=== PATIENT | male | born 1950 | race Caucasian/White ===

== ENCOUNTER 2021-11-12 03:05 | Observation (INO) | payer MEDICARE, SELFPAY ==
[2021-11-12] VITALS (16 sets, daily range): BP systolic 109–164; BP diastolic 60–81; PULSE 18–102; RESP 14–22; TEMP 36.5–36.9; O2SAT 95–100; BMI 27.8
--- NOTE | ~2021-11-12 | XR_ITS ---
EXAMINATION: XR chest 2V DATE: 11/12/2021 03:40 INDICATION: Chest pain. TECHNIQUE: Frontal and lateral views of the chest were obtained. COMPARISON: None. FINDINGS: There are airspace opacities in right lower lung zone and left mid and lower lung zones. No pleural effusion or pneumothorax. Cardiomegaly is noted. IMPRESSION: 1. Airspace opacities in right lower lung zone and left mid and lower lung zones, consistent with ate lectasis versus pneumonia. 2. Cardiomegaly. Reviewed, dictated and finalized at location A. RING MACHINE OPERATOR IMPRESSION: 1. Airspace opacities in right lower lung zone and left mid and lower lung zone s, consistent with atelectasis versus pneumonia. 2. Cardiomegaly.
--- NOTE | ~2021-11-12 | CT_ITS ---
EXAMINATION: CT brain wo con DATE: 11/12/2021 03:40 INDICATION: Dizziness. Head injury. TECHNIQUE: Computed tomography (CT) of the head was performed without intravenous contrast. The mA wa s adjusted according to patient size. Iterative reconstruction technique was employed. The dose-lengt h product was 681.00 mGy-cm. COMPARISON: None FINDINGS: There are scattered areas of low attenuation in the cerebral white matter, which is within normal limits for the patient's age. There is an old lacunar infarct in the left basal ganglia. There is no intracranial hemorrhage, acute infarction, or abnormal intracranial mass lesion. The ventricle s are normal in size. There is mild mucosal thickening in left maxillary sinus. The mastoid air cells are normal. There are likely changes of ocular lens replacement surgeries. IMPRESSION: 1. Old lacunar infarct in the left basal ganglia. Reviewed, dictated and finalized at location A. ULTING SALES MANAGER
--- NOTE | 2021-11-12 03:07 | ECG_ITS ---
Measurements Intervals [place] Rate: 81 P: 65 [place]: 196 QRS: -77 QRSD: 169 T: 44 QT: 422 QTc: 492 Interpretive Statements SINUS RHYTHM POSSIBLE LEFT ATRIAL ENLARGEMENT [-0.1mV P WAVE IN V1/V2] RIGHT BUNDLE BRANCH BLOCK [120+ ms QRS DURATION, UPRIGHT V1, 40+ ms S IN I/aVL/V4/V5/V6] LEFT ANTERIOR FASCICULAR BLOCK [QRS AXIS <= -45, QR IN I, RS IN II] LEFT VENTRICULAR HYPERTROPHY AND ST-T CHANGE [VOLTAGE CRITERIA PLUS ST/T ABNORMALITY] POSSIBLE ANTEROSEPTAL MYOCARDIAL INFARCTION , OF INDETERMINATE AGE [30 ms Q WAVE IN V1- V4] ABNORMAL ECG NO PREVIOUS ECG AVAILABLE FOR COMPARISON Electronically Signed On 11-12-2021 14:04:45 SUPERVISOR METAL FABRICATING by Jose De Jesus Lui M.D.
--- NOTE | 2021-11-12 03:09 | ED.CHESTPAIN ---
HPI - Chest Pain General Chief Complaint: Chest Pain Stated Complaint: left sided chest pain Time Seen by Provider: 11/12/21 03:08 Source: patient Mode of arrival: ambulatory Limitations: no limitations History of Present Illness HPI narrative: Patient is a 71-year-old male complaining of chest pain, left chest, 8 out of 10, tightness, nonradiating started prior to arrival. Patient also complaining of feeling dizzy accompanied by nausea, fell and hit his head on the floor. Patient denies any loss of consciousness. Patient was able to get up and ambulate after the fall. Patient denies any shortness of breath, abdominal pain, vomiting, diaphoresis, fever or chills. Related Data Allergies Allergy/AdvReac Type Severity Reaction Status Date / Time No Known Allergies Allergy Verified 11/12/21 03:51 Review of Systems Review of Systems: All systems reviewed & are unremarkable except as noted in HPI and below Constitutional: Constitutional: Denies body ache(s), Denies chills, Denies excessive sweating, Denies fatigue, Denies fever(s), Denies headache(s), Denies lethargy, Denies malaise, Denies weakness and Denies weight loss Eyes: Eyes: Denies blurry vision, Denies change in vision and Denies loss of vision ENT: Denies dizziness, Denies ear discharge, Denies headache(s), Denies lip swelling, Denies epistaxis, Denies nasal congestion, Denies neck pain, Denies throat swelling and Denies tongue swelling Cardiovascular: Cardiovascular: Denies chest pain, Denies chest pain at rest, Denies chest pain with activity, Denies diaphoresis, Denies rapid heart rate, Denies edema, Denies irregular heart rhythm, Denies lightheadedness, Denies palpitations, Denies dyspnea and Denies dyspnea on exertion Respiratory: Respiratory: Denies chest congestion, Denies cough, Denies hemoptysis, Denies dyspnea and Denies dyspnea on exertion Gastrointestinal: Gastrointestinal: Denies abdominal pain, Denies melena, Denies hematochezia, Denies diarrhea, Denies vomiting and Denies hematemesis Musculoskeletal: Musculoskeletal: Denies abnormal gait, Denies deformity, Denies joint swelling, Denies limited range of motion, Denies neck pain and Denies numbness Neurologic: Denies Abnormal speech present, Denies abnormal gait, Denies confusion, Denies headache(s), Denies focal weakness, Denies loss of vision, Denies numbness, Denies Other visual disturbances, Denies Sensory deficit (Neuro) and Denies weakness Psychiatric: Psychiatric: Denies confusion, Denies depression, Denies auditory hallucinations, Denies homicidal ideation and Denies suicidal ideation Endocrine: Endocrine: Denies cold intolerance, Denies excessive sweating, Denies fatigue, Denies heat intolerance and Denies palpitations Hematologic/Lymphatic: Hematologic/Lymphatic: Denies easy bleeding and Denies easy bruising Allergic/Immunologic: Allergic/Immunologic: Denies lip swelling, Denies throat swelling and Denies tongue swelling PMFSH Comments Past medical history: Hypertension, hyperlipidemia, coronary artery disease with stent placement Family history: Positive for coronary artery disease Social history: Non-smoker no EtOH or drug use Exam Const: General: cooperative, healthy appearing, comfortable, no acute distress, well developed, alert and awake; No confusion Orientation/consciousness: oriented to person, oriented to place, oriented to time, patient oriented x3 and No confusion Limitations: no limitations HENMT: Head: normal to inspection, normocephalic and atraumatic Ears: hearing grossly normal bilaterally, TM normal on the right and TM normal on the left General nose exam: Normal external nose present, Normal nares present and No nasal discharge present Face and sinus: normal facial exam Mouth: Yes Normal oral and palatal mucosa present, Yes lip normal, Yes tongue normal and Yes oropharynx normal Throat: posterior oropharynx normal, tonsils normal and uvula midline Eyes: General: appearance norm
[2021-11-12 03:28] LABS: Basophils Absolute Auto 0.1 K/mm3 (0.0-0.1); Basophils Percent Auto 0.6 % (0.2-1.2); Eosinophils Percent Auto 0.4 % (0-4.4); Hematocrit 36.1 % (42.0-52.0); Hemoglobin 11.8 g/dL (14.0-18.0); Immature Granulocyte Absolute 0.03 K/mm3 (0.00-0.031); Immature Granulocyte Percent A 0.3 % (0-0.5); Lymphocytes Absolute Auto 1.04 K/mm3 (0.9-3.2); Lymphocytes Percent Auto 10.4 % (18.3-44.2); Mean Corpuscular HGB Conc 32.7 g/dl (32-36); Mean Corpuscular Hemoglobin 34.7 pg (26-34); Mean Corpuscular Volume 106.2 fl (80-100); Mean Platelet Volume 9.3 fl (7.4-10.4); Monocytes Absolute Auto 0.6 K/mm3 (0.1-0.6); Monocytes Percent Auto 5.9 % (2.6-8.5); Neutrophils Absolute Auto 8.3 K/mm3 (1.3-6.7); Neutrophils Percent Auto 82.4 % (45.5-73.1); Platelet Count Result 282 k/mm3 (150-375)
--- NOTE | 2021-11-12 03:30 | PC.NURSE ---
Addendum entered by Alexys León RN 11/12/21 06:11: this RN let significant other know that we were doing everything we could for the pt and to not be disrespectful to staff. Significant other later asking for JASMIN ramirez name and for something to leave a review. Original Note: significant other of pt at bedside, JASMIN ramirez started IV attempting aspirate blood when significant other states thats not a good blood draw, I'm a BSN and I know that isnt good. significant other also stating He's very sick and he needs to stay here.
[2021-11-12 03:39] LABS: Alanine Aminotransferase 27 U/L (4-50); Albumin Level 4.5 g/dL (3.5-5.1); Alkaline Phosphatase 55 U/L (38-126); Anion Gap 11 mmol/L (8-16); Aspartate Amino Transferase 48 U/L (17-59); Bilirubin,Total 0.8 mg/dL (0.2-1.3); Blood Urea Nitrogen 41 mg/dL (9-20); Calcium 9.4 mg/dL (8.4-10.2); Carbon Dioxide 20 mmol/L (22-30); Chloride 107 mmol/L (98-107); Estimated CRCL calculation 39 ml/min; Estimated Glomerular Filt Rate 40; Glucose 142 mg/dL (65-110); Lipase 273 U/L (23-300); Potassium 5.1 mmol/L (3.4-5.0); Sodium 138 mmol/L (137-145)
[2021-11-12 03:43] LABS: Prothrombin Time 13.1 Seconds (11.1-14.7)
[2021-11-12 03:50] LABS: Troponin I < 0.012 ng/mL (0.000-0.034)
[2021-11-12] MEDS: ASPIRIN 81 MG CHEWABLE TABLET 324 MG PO (03:52)
[2021-11-12] MEDS: NITROGLYCERIN SL 0.4 MG TABLET SUBLINGUAL (03:53)
[2021-11-12] MEDS: PROMETHAZINE HCL 25 MG/ML AMPUL 12.5 MG IV PUSH (03:54)
[2021-11-12] MEDS: LACTATED RINGERS 1,000 ML 999 ML IV CONT (03:55)
--- NOTE | 2021-11-12 04:18 | PC.NURSE ---
1st and 2nd dose of nitro given, pt began throwing up shortly after second dose. 3rd dose not given per EDP riley and EDP riley made aware. EDP riley verbal order read back for 4 mg zofran IV at this time.
[2021-11-12] MEDS: FUROSEMIDE INJ 40 MG/4 ML VIAL 10 MG IV PUSH (04:25)
[2021-11-12] MEDS: ONDANSETRON INJ 4 MG/2 ML VIAL IV PUSH (04:25)
[2021-11-12] MEDS: LACTATED RINGERS 1,000 ML 100 ML IV CONT ×2 (05:36→20:00)
[2021-11-12 06:18] LABS: SARS-CoV-2 RNA PCR Negative
[2021-11-12 06:50] LABS: Troponin I < 0.012 ng/mL (0.000-0.034)
--- NOTE | 2021-11-12 07:06 | ADMGEN ---
This patient, Julián Saucead, was admitted to IMU Room 214-01 TODy 11/12/2021@ 0655. Patient/family oriented to hospital policies and general routines including ID bracelet, bed and alarms, visiting hours, pain management, procedures, bathroom and other care routines, personal items, smoking policy, room service/diet, and visiting hours. Information on how to activate the Rapid Response Team has been discussed. Patient/Family are encouraged to report perceived risks to care and to ask questions if they do not understand what they are told or what they should do.
[2021-11-12 09:38] LABS: Troponin I < 0.012 ng/mL (0.000-0.034)
[2021-11-12 10:44] LABS: Hematocrit 33.8 % (42.0-52.0); Hemoglobin 11.2 g/dL (14.0-18.0)
--- NOTE | 2021-11-12 10:50 | ECG_ITS ---
Measurements Intervals [place] Rate: 95 P: 43 [place]: 201 QRS: -78 QRSD: 177 T: 51 QT: 397 QTc: 500 Interpretive Statements SINUS RHYTHM RIGHT BUNDLE BRANCH BLOCK [120+ ms QRS DURATION, UPRIGHT V1, 40+ ms S IN I/aVL/V4/V5/V6] LEFT ANTERIOR FASCICULAR BLOCK [QRS AXIS <= -45, QR IN I, RS IN II] COMPARED TO ECG 11/12/2021 03:13:03 NO SIGNIFICANT CHANGES Electronically Signed On 11-12-2021 15:46:20 SOIL BIOLOGY TEACHER by Rajat De Leon M.D.
[2021-11-12 11:08] LABS: Anion Gap 6 mmol/L (8-16); Blood Urea Nitrogen 42 mg/dL (9-20); Calcium 9.3 mg/dL (8.4-10.2); Carbon Dioxide 25 mmol/L (22-30); Chloride 107 mmol/L (98-107); Estimated CRCL calculation 44 ml/min; Estimated Glomerular Filt Rate 46; Glucose 173 mg/dL (65-110); Potassium 6.1 mmol/L (3.4-5.0); Sodium 138 mmol/L (137-145)
[2021-11-12 11:38] LABS: D Dimer 0.56 ug/mL (<0.48)
--- NOTE | 2021-11-12 11:44 | PM.CNCAR ---
Assessment and Plan Assessment and plan (1) Chest pain: Qualifiers: Chest pain type: unspecified Qualified Code(s): R07.9 - Chest pain, unspecified Code(s): R07.9 - Chest pain, unspecified Status: Acute Assessment and Plan: Chest pain atypical, constant highly suggestive of GI etiology with burning in nature, worse with coughing, coffee-ground emesis with nausea and vomiting, worse with deep breathing lying flat with reported history of alcohol intake, combination of consistent NSAIDs plus aspirin and clopidogrel. Symptoms are not secondary to acute coronary syndrome and/or plaque rupture. Serial troponins negative for myocardial infarction. No prior EKG available for comparison. No acute ST elevations noted. Symptoms quite concerning for ulcer and or severe inflammation. Recommend GI consult, EGD as appropriate. Clinically, patient very likely to have pulmonary embolism. No edema, shortness of breath, hypoxia or significant tachycardia. D-dimer ordered but explained anticipate will be elevated. I would not advise systemic anticoagulation given concern for ulcer disease with coffee-ground emesis until further clarification. Very lengthy discussion held the patient and significant other at bedside. Given the persistence of his symptoms, negative serial troponins lack of acute ST elevations and clinical description and history highly suggestive of GI etiology. Will continue to monitor patient closely in this regard. Reassured them at this time with regards to acute coronary event is not occurring with a further GI workup recommended as appropriate. They verbalized understanding and agreed with plan of care. Appreciated my explanations and was grateful for the time spent with them. Discussed with primary service, GI consultation placed. Further recommendations to follow patient patient's clinical course and response to therapy. (2) CAD (coronary artery disease): Qualifiers: Coronary Disease-Associated Artery/Lesion type: [place] artery [place] vs. transplanted heart: [place] heart Associated angina: without angina Qualified Code(s): I25.10 - Atherosclerotic heart disease of [place] coronary artery without angina pectoris Code(s): I25.10 - Atherosclerotic heart disease of [place] coronary artery without angina pectoris Status: Acute Assessment and Plan: Dual antiplatelet therapy to be continued as appropriate due to overlapping drug-eluting stent February 2021 at [facility] 3.0 x 38 mm in 2.5 x 24 mm. May hold for EGD. At the very least if able clopidogrel without aspirin although GI recommendations are pending. Continue statin beta-rafael therapy as tolerated. (3) Coffee ground emesis: Code(s): K92.0 - Hematemesis Status: Acute Assessment and Plan: As above. Concerning for NSAID induced ulcer disease and or esophagitis. Defer to GI and primary service. IV Protonix 40 mg IV q.12 ordered. (4) GERD (gastroesophageal reflux disease): Qualifiers: Esophagitis presence: esophagitis presence not specified Qualified Code(s): K21.9 - Gastro-esophageal reflux disease without esophagitis Code(s): K21.9 - Gastro-esophageal reflux disease without esophagitis Status: Acute Assessment and Plan: As above. (5) Near syncope: Code(s): R55 - Syncope and collapse Status: Acute Assessment and Plan: Likely combination of nausea, vomiting, alcohol but without rehana syncope. Continue telemetry. (6) Acute hyperkalemia: Code(s): E87.5 - Hyperkalemia Status: Acute Assessment and Plan: Repeat stat potassium. Defer to primary service. (7) Alcohol use: Code(s): Z72.89 - Other problems related to lifestyle Status: Acute Assessment and Plan: Immediate and absolute cessation from alcohol. (8) Anemia: Code(s): D64.9 - Anemia, unspecified Status: Acute Assessment
--- NOTE | 2021-11-12 12:04 | ECHO_ITS ---
Patient Info Name: Julián Sauceda Age: 71 years : 1950 Gender: Male Ht: 71 in Wt: 199 lbs BSA: 2.14 m2 HR: 98 bpm BP: 146 / 64 mmHg Heart Rhythm: Sinus Rhythm Exam Date: 11/12/2021 1:12 PM Exam Location: [facility] Patient Status: Inpatient Admit Date: 11/12/2021 Staff Ordering Physician: Jose De Jesus Lui MD Advanced Practice Registered Nurse: Edmond Mansfield RDCS, RT Attending Provider: Neisha London PA-C Referring Physician: Hu HERRREA; Exam Type: CA echo dop color flow w con Study Info Indications R07.9 - Chest pain, unspecified Complete two-dimensional, color flow and Doppler transthoracic echocardiogram is performed with contrast to opacify the left ventricle and to improve the deliniation of the left ventricle endocardial borders. Strain analysis performed. Summary 1. Technically difficult study with limited views. Definity echo contrast enhancement administered. 2. Left ventricular systolic function is normal, estimated at 55-60%. 3. There is moderately increased left ventricular wall thickness. 4. Left ventricular septal wall motion is abnormal with septal motion related to bundle branch block. 5. The left ventricular diastolic function is grade I diastolic dysfunction. 6. Right atrial chamber dimension is mildly enlarged. 7. There is no aortic valve stenosis. 8. There is trace mitral valve regurgitation. 9. Unable to estimate PA systolic pressure due to poor spectral resolution of tricuspid regurgitant jet velocity. 10. The aortic root size at the sinus of Valsalva is mildly dilated at 4.1cm. Consider CT chest if clinically indicated. Left Ventricle Left ventricular chamber dimension is normal. Left ventricular systolic function is normal, estimated at 55-60%. There is moderately increased left ventricular wall thickness. Left ventricular septal wall motion is abnormal with septal motion related to bundle branch block. The left ventricular diastolic function is grade I diastolic dysfunction. Right Ventricle Right ventricular chamber dimension is normal. Right ventricular systolic function is normal. Left Atria Left atrial chamber dimension is normal. Right Atria Right atrial chamber dimension is mildly enlarged. Aortic Valve The aortic valve is trileaflet. There is no aortic valve stenosis. There is no aortic valve regurgitation. Pulmonic Valve The pulmonic valve is not well visualized. There is trace pulmonic regurgitation. Mitral Valve The mitral valve has normal leaflets. There is trace mitral valve regurgitation. The mitral valve annulus is mildly calcified. Tricuspid Valve The tricuspid valve leaflets are normal. There is trace tricuspid valve regurgitation. Unable to estimate PA systolic pressure due to poor spectral resolution of tricuspid regurgitant jet velocity. Pericardium/Pleural The pericardium appears epicardial fat pad. There is no pericardial effusion. Aorta The aortic root size at the sinus of Valsalva is mildly dilated at 4.1cm. Consider CT chest if clinically indicated. There is mild aortic atherosclerosis. Left Ventricular Outflow Tract Name Value Normal LVOT 2D LVOT Diameter 2.44 cm LVOT Doppler
[2021-11-12] MEDS: FOLIC ACID 1 MG TABLET PO (12:32)
[2021-11-12] MEDS: PANTOPRAZOLE SODIUM IV 40 MG VIAL IV PUSH ×2 (12:32→20:00)
[2021-11-12] MEDS: THIAMINE HCL 100 MG TABLET PO (12:32)
[2021-11-12 12:34] LABS: Potassium 5.2 mmol/L (3.4-5.0)
--- NOTE | 2021-11-12 12:54 | PM.IMHP ---
H&P: HPI History of Present Illness Date/Time: 11/12/21 12:54 <Neisha London PA-C - Last Filed: 11/12/21 13:43> Chief Complaint: EPigastric pain <Neisha London PA-C - Last Filed: 11/12/21 13:43> Narrative: Date of service: 11/12/2021 Julián Sauceda is a 71-year-old male with a history of CAD, hypertension, hyperlipidemia, COVID-19 in November 2020 with long COVID symptoms, and daily alcohol use who presented to the emergency department on 11/12/2021 with complaints of severe epigastric pain. The patient states that he was watching TV when all of a sudden he felt very nauseous and had an episode of black emesis. He then developed diffuse, sharp, burning epigastric pain that he rated as 9/10. This pain prompted him to go to the emergency department where he reports he had another episode of black emesis. He states that he hit his head on the sink when he was throwing up and cut his left upper brow. He is not sure what transpired with the fall and he states ?I am not sure if I passed out.? He admits to drinking 4 whiskey drinks in a 6 hour period prior to this episode but reports that he did not feel intoxicated. He denies lower abdominal pain. He denies midsternal pain. Denies arm pain, jaw pain. He does admit that he has had dark stools for several months which he has attributed to iron pills. He does take aspirin and plavix daily and NSAIDs regularly. <Neisha London PA-C - Last Filed: 11/12/21 13:43> Review of Systems Review of Systems: All systems reviewed with pertinent positives and negatives as per HPI. Additionally, patient endorses increased fatigue and dyspnea which she relates to his long COVID symptoms. He has frequent heartburn symptoms. He denies cough. Denies palpitations. He felt dizzy when he had an episode of pain. Denies lightheadedness. He reports that he has been more weak since having COVID and cannot get around as well, though he still is able to ambulate independently. Denies any history of alcohol withdrawal symptoms or alcohol withdrawal seizures. He was hospitalized 1 year ago and did not have alcohol withdrawal symptoms at that time. He has had a diffuse rash for 1 month for which she has been managed by Dermatology and will undergo a biopsy in 1 week. Reports the rash is mildly pruritic and tapia. He had a formed bowel movement yesterday. Denies dysuria, hematuria, urgency, or frequency. He completed his COVID vaccine and booster. He denies sick contacts. <Neisha London PA-C - Last Filed: 11/12/21 13:43> [facility] Past Medical History Medical History: Medical History (Updated 11/12/21 @ 13:13 by Neisha London PA-C) CAD (coronary artery disease) Chronic fatigue Diverticulitis of colon with perforation GERD (gastroesophageal reflux disease) History of COVID-19 Hyperlipidemia Hypertension <Neisha London PA-C - Last Filed: 11/12/21 13:43> Surgical History Surgical History: Surgical History (Updated 11/12/21 @ 13:13 by Neisha London PA-C) H/O rotator cuff surgery History of appendectomy History of colostomy reversal 2000 Status post coronary artery stent placement <Neisha London PA-C - Last Filed: 11/12/21 13:43> Family History Family History: Family History (Updated 11/12/21 @ 13:13 by Neisha London PA-C) Mother Cerebrovascular accident <Neisha London PA-C - Last Filed: 11/12/21 13:43> Social History Social History: Social History (Updated 11/12/21 @ 13:16 by Neisha London PA-C) Social History: Mr. Sauceda lives at home. He is independent in his daily activities. He works as an mergers and acquisitions attorney. His primary care provider is Dr. Whitney. He dizzy needs his partner, Selina as his surrogate decision maker and he would like to be a full code. Smoking status: Never smoker Alcohol intake: current Alcohol use details: 4-5 glasses of whiskey/day Substance use: never Substance u
[2021-11-12] MEDS: PERFLUTREN LIPID MICROSPHERES 1.5 ML VIAL DILUTED TO 10 ML TOTAL VOLUME IV PUSH (13:32)
--- NOTE | 2021-11-12 13:32 | IVDEFINITY ---
Prior to administration of IV Definity the patient was educated on the risks and benefits of the imaging enhancing agent including potential adverse side effects. The patient verbalized understanding. Allergies were verified. No exclusion criteria were identified and at least one of the following inclusion criteria were met: 1) physician request, 2) patient technically difficult to image (per the [place] [employer]ch[employer] guidelines of two or more segments not discernable within the apical view), or 3) questionable left ventricular function. ?
[2021-11-12 14:16] LABS: Hematocrit 31.1 % (42.0-52.0); Hemoglobin 10.4 g/dL (14.0-18.0)
--- NOTE | 2021-11-12 15:39 | WPDGICN ---
Assessment and Plan Assessment and plan (1) Coffee ground emesis: Code(s): K92.0 - Hematemesis Status: Acute Assessment and Plan: this along with his epigastric pain suggests the possibility of peptic ulcer disease. Also to be considered would be alcohol related gastritis or NSAID gastritis. I doubt that he would have esophageal varices as there is no history of liver disease. (2) Epigastric pain: Code(s): R10.13 - Epigastric pain Status: Acute Assessment and Plan: This suggests the possibility of peptic ulcer disease. EGD will be scheduled. We were about to do that today when his nurse told me that he had just finished a couple of broth and some water. (3) Chronic alcohol abuse: Code(s): F10.10 - Alcohol abuse, uncomplicated Status: Acute Assessment and Plan: He has never had alcohol related disease Or hospitalization (4) Hyperkalemia: Code(s): E87.5 - Hyperkalemia Status: Acute Assessment and Plan: his potassium was initially 6 point 1 but repeat a few hours later was 5.2. I do not think that this is a problem GI Consult Note Consult date/time: 11/12/21 15:39 HPI: Julián Sauceda is a 71 year old male who presented emergency room yesterday evening with complaints of discomfort in his chest and vomiting black material. He 1st noticed pain in the epigastric area and nausea. He had a large amount of black emesis and then developed more burning discomfort in the epigastric area. After he came to emergency room he had another similar episode of black emesis And apparently bumped his head on the sink and fell. He denies any past history of peptic ulcer disease. He did have part of his colon resected 20 years ago for diverticulitis. He takes aspirin and Plavix every day and occasional NSAIDs. He drinks whiskey, 4 drinks per day but has never had a problem related to alcohol. He has no history of liver disease or pancreatic disease. His appetite has been good and his weight has been stable in the 190s for many years. he came down with COVID 19 last year and has overcome that but it took him some time. There is no family history of digestive disease or bleeding disorders. He denies excessive bruisability Review of Systems Review of Systems: All systems reviewed & are unremarkable except as noted in HPI and below PMFSH Past Medical History Medical History CAD (coronary artery disease) Chronic fatigue Diverticulitis of colon with perforation GERD (gastroesophageal reflux disease) History of COVID-19 Hyperlipidemia Hypertension Surgical History Surgical History H/O rotator cuff surgery History of appendectomy History of colostomy reversal 2000 Status post coronary artery stent placement Family History Family History Mother Cerebrovascular accident Social History Social History Social History: Mr. Sauceda lives at home. He is independent in his daily activities. He works as an ip attorney. His primary care provider is Dr. Whitney. He dizzy needs his partner, Selina as his surrogate decision maker and he would like to be a full code. Smoking status: Never smoker Alcohol intake: current Alcohol use details: 4-5 glasses of whiskey/day Substance use: never Substance use type: does not use Spiritual care concerns: No Meds Home Medications and Allergies Home Medications Medication Instructions Recorded Confirmed Type atorvastatin 11/12/21 History clopidogrel 11/12/21 History lisinopril 11/12/21 History metoprolol succinate PO 11/12/21 History Allergies Allergy/AdvReac Type Severity Reaction Status Date / Time No Known Allergies Allergy Verified 11/12/21 03:51 Vital Sig
[2021-11-12 21:55] LABS: Hematocrit 30.7 % (42.0-52.0); Hemoglobin 10.2 g/dL (14.0-18.0)
[2021-11-13] VITALS (12 sets, daily range): BP systolic 114–151; BP diastolic 66–84; PULSE 50–79; RESP 15–24; TEMP 36.6–36.7; O2SAT 98–100
[2021-11-13] MEDS: LACTATED RINGERS 1,000 ML 100 ML IV CONT (06:18)
[2021-11-13 09:00] LABS: Hematocrit 31.7 % (42.0-52.0); Hemoglobin 10.3 g/dL (14.0-18.0); Mean Corpuscular HGB Conc 32.5 g/dl (32-36); Mean Corpuscular Hemoglobin 34.8 pg (26-34); Mean Corpuscular Volume 107.1 fl (80-100); Mean Platelet Volume 9.3 fl (7.4-10.4); Platelet Count Result 197 k/mm3 (150-375); Red Blood Count 2.96 M/mm3 (4.6-6.20); Red Cell Distribution Width 12.9 % (11.5-14.5); White Blood Count 6.2 K/mm3 (4.5-10.0)
[2021-11-13] MEDS: PANTOPRAZOLE SODIUM IV 40 MG VIAL IV PUSH (09:09)
[2021-11-13] MEDS: FOLIC ACID 1 MG TABLET PO (09:09)
[2021-11-13] MEDS: THIAMINE HCL 100 MG TABLET PO (09:09)
[2021-11-13 09:17] LABS: Anion Gap 5 mmol/L (8-16); Blood Urea Nitrogen 22 mg/dL (9-20); Calcium 8.7 mg/dL (8.4-10.2); Carbon Dioxide 24 mmol/L (22-30); Chloride 106 mmol/L (98-107); Estimated CRCL calculation 59 ml/min; Estimated Glomerular Filt Rate > 60; Glucose 104 mg/dL (65-110); Potassium 4.7 mmol/L (3.4-5.0); Sodium 135 mmol/L (137-145)
--- NOTE | 2021-11-13 12:04 | WPDANESEPPF ---
Anes - Initial Pre Proc Eval Procedure: Operation Date: 11/13/21 13:15 Proposed Procedures p Esophagogastroduodenoscopy - Marshall Mcgregor MD Date/Time: 11/13/21 12:04 Surgeon: Neisha London PA-C Pre Op Diagnosis: Chest pain/near syncope/hyperkalemia Patient Data Age: 71 Gender: M Height: 1.8 m Weight: 91.7 kg Last Vital Signs Temp 97.8 F 11/13/21 11:30 Pulse 68 11/13/21 11:30 Resp 20 11/13/21 11:30 BP 130/72 11/13/21 11:30 Pulse Ox 100 11/13/21 11:30 Allergies Allergy/AdvReac Type Severity Reaction Status Date / Time No Known Allergies Allergy Verified 11/13/21 12:00 Home Medications Medication Instructions Recorded Confirmed Type atorvastatin 11/12/21 History clopidogrel 75 mg PO DAILY 11/12/21 History lisinopril 11/12/21 History metoprolol succinate PO 11/12/21 History Laboratory Tests 11/12/21 11/12/21 11/12/21 12:06 14:10 21:50 WBC RBC Hgb 10.4 g/dL L g/dL 10.2 g/dL L g/dL (14.0-18.0) (14.0-18.0) Hct 31.1 % L % 30.7 % L % (42.0-52.0) (42.0-52.0) MCV MCH MCHC RDW Plt Count MPV Sodium Potassium 5.2 mmol/L H mmol/L (3.4-5.0) Chloride Carbon Dioxide Anion Gap BUN Creatinine Estim Creat Clear Calc Estimated GFR Glucose Calcium 11/13/21 11/13/21 08:52 08:52 WBC 6.2 K/mm3 K/mm3 (4.5-10.0) RBC 2.96 M/mm3 L M/mm3 (4.6-6.20) Hgb 10.3 g/dL L g/dL (14.0-18.0) Hct 31.7 % L % (42.0-52.0) MCV 107.1 fl H fl (80-100) MCH 34.8 pg H pg (26-34) MCHC 32.5 g/dl g/dl (32-36) RDW 12.9 % % (11.5-14.5) Plt Count 197 k/mm3 k/mm3 (150-375) MPV 9.3 fl fl (7.4-10.4) Sodium 135 mmol/L L mmol/L (137-145) Potassium 4.7 mmol/L mmol/L (3.4-5.0) Chloride 106 mmol/L mmol/L (98-107) Carbon Dioxide 24 mmol/L mmol/L (22-30) Anion Gap 5 mmol/L L mmol/L (8-16) BUN 22 mg/dL H D mg/dL (9-20) Creatinine 1.10 mg/dL mg/dL (0.7-1.3) Estim Creat Clear Calc 59 ml/min ml/min Estimated GFR > 60 (59 - ) Glucose 104 mg/dL mg/dL (65-110) Calcium 8.7 mg/dL mg/dL (8.4-10.2) Patient hx anesthesia problems: none Family hx anesthesia problems: none Results Review: All pre-operative results and documents have been reviewed as part of the pre-operative evaluation. [facility] Past Medical History Medical History CAD (coronary artery disease) Chronic fatigue Diverticulitis of colon with perforation GERD (gastroesophageal reflux disease) History of COVID-19 Hyperlipidemia Hypertension Surgical History Surgical History H/O rotator cuff surgery History of appendectomy History of colostomy reversal 2000 Status post coronary artery stent placement Family History Family History Mother Cerebrovascular accident Social History Social History Social History: Mr. Sauceda lives at home. He is independent in his daily activities. He works as an processing rep. His primary care provider is Dr. Whitney. He dizzy needs his partner, Selina as his surrogate decision maker and he would like to be a full code. Smoking status: Never smoker Alcohol intake: current Alcohol use details: 4-5 glasses of whiskey/day Substance use: never Substance use type: does not use Spiritual care concerns: No Anes - Eval Final PreProcedure Day of Procedure 11/13/21 12:04 Patient weight: overweight Heart: regular rate and rhythm Lungs: clear to auscultation
[2021-11-13] MEDS: LACTATED RINGERS 1,000 ML 150 ML IV CONT (12:07)
--- NOTE | 2021-11-13 13:48 | P.DS_ITS ---
DS: Admitting Diagnosis Discharge Date 11/13/2021 Admitting Diagnosis Epigastric pain DS: Discharge Diagnosis Discharge Diagnosis (1) Ulcerative esophagitis: Code(s): K22.10 - Ulcer of esophagus without bleeding Status: Acute Assessment and Plan: Presented with severe epigastric pain and coffee-ground emesis * Clinical picture was highly concerning for bleeding ulcer in light of history of GERD, alcohol use, daily aspirin, Plavix, and NSAIDs * Seen in consultation by Gastroenterology during hospitalization * Underwent EGD on 11/13/2021 which showed grade 4 reflux esophagitis with ulceration. No active bleeding visualized, though this was felt to be the source of patient's coffee-ground emesis. * He will continue taking Protonix 40 mg b.i.d. * Anti-reflux measures were implemented, he was educated on this * He will need a repeat EGD in 2 months to assess for healing. Follow-up with Dr. Mcgregor * Discussed with GI and Cardiology (Dr. Lui spoke to the patient's spreader box operator, Dr. Crum). Will hold Plavix for 1 week and will hold aspirin until further cardiology follow-up * NSAIDs to be avoided (2) Anemia: Code(s): D64.9 - Anemia, unspecified Status: Acute Assessment and Plan: No prior labs to establish baseline * Hemoglobin remained stable patient had no ongoing bleeding * Repeat H&H on 11/16/2021 as an outpatient to ensure remaining stable. Results to PCP (3) Fall: Code(s): W19.XXXA - Unspecified fall, initial encounter Status: Acute Assessment and Plan: Details surrounding this are unclear * He sustained a minor abrasion to the left brow * No additional injuries * Head CT showed no acute findings with evidence of old lacunar infarct * Concerns for possible syncope, the patient is unsure and the episode was unwitnessed. May have been presyncopal related to nausea, vomiting, pain, and alcohol use. He was seen in consultation by Cardiology and was monitored on telemetry. No further evaluation required (4) Chronic alcohol abuse: Code(s): F10.10 - Alcohol abuse, uncomplicated Status: Acute Assessment and Plan: Patient reports drinking 4-5 whiskey drinks per day * Denies history of alcohol withdrawal symptoms * CIWA score implemented during admission, scores ranged from 0-6 * Continue thiamine and folic acid * Discussed need for alcohol avoidance for 1 week to allow for healing and then alcohol reduction to recommended amount of two 1.5 oz drinks or less per day (5) Acute kidney failure: Code(s): N17.9 - Acute kidney failure, unspecified Status: Acute Assessment and Plan: Resolved with gentle IV fluids. * Creatinine 1.1 at time of discharge (6) Hyperkalemia: Code(s): E87.5 - Hyperkalemia Status: Acute Assessment and Plan: Resolved with fluids * Potassium 5.1 on presentation, improved to 4.7 at time of discharge * 1 rating shows a potassium of 6.1. On stat repeat this declined to 5.2 without intervention. Suspect this was erroneous (7) Barretts esophagus: Code(s): K22.70 - Vieira's esophagus without dysplasia Status: Acute Assessment and Plan: Evident on EGD * Esophageal biopsies taken on EGD * Follow-up with GI as an outpatient and repeat EGD in 2 months DS: Summary Hospital Course Hospital Course: Date of admission: 11/12/21 Date of discharge: 11/13/21 Julián Sauceda is a 71-year-old male with a history of CAD, hypertension, hyperlipid
--- NOTE | 2021-11-13 13:48 | PM.DS ---
DS: Admitting Diagnosis Discharge Date 11/13/2021 Admitting Diagnosis Epigastric pain DS: Discharge Diagnosis Discharge Diagnosis (1) Ulcerative esophagitis: Code(s): K22.10 - Ulcer of esophagus without bleeding Status: Acute Assessment and Plan: Presented with severe epigastric pain and coffee-ground emesis Clinical picture was highly concerning for bleeding ulcer in light of history of GERD, alcohol use, daily aspirin, Plavix, and NSAIDs Seen in consultation by Gastroenterology during hospitalization Underwent EGD on 11/13/2021 which showed grade 4 reflux esophagitis with ulceration. No active bleeding visualized, though this was felt to be the source of patient's coffee-ground emesis. He will continue taking Protonix 40 mg b.i.d. Anti-reflux measures were implemented, he was educated on this He will need a repeat EGD in 2 months to assess for healing. Follow-up with Dr. Mcgregor Discussed with GI and Cardiology (Dr. Lui spoke to the patient's registered midwife, Dr. Crum). Will hold Plavix for 1 week and will hold aspirin until further cardiology follow-up NSAIDs to be avoided (2) Anemia: Code(s): D64.9 - Anemia, unspecified Status: Acute Assessment and Plan: No prior labs to establish baseline Hemoglobin remained stable patient had no ongoing bleeding Repeat H&H on 11/16/2021 as an outpatient to ensure remaining stable. Results to PCP (3) Fall: Code(s): W19.XXXA - Unspecified fall, initial encounter Status: Acute Assessment and Plan: Details surrounding this are unclear He sustained a minor abrasion to the left brow No additional injuries Head CT showed no acute findings with evidence of old lacunar infarct Concerns for possible syncope, the patient is unsure and the episode was unwitnessed. May have been presyncopal related to nausea, vomiting, pain, and alcohol use. He was seen in consultation by Cardiology and was monitored on telemetry. No further evaluation required (4) Chronic alcohol abuse: Code(s): F10.10 - Alcohol abuse, uncomplicated Status: Acute Assessment and Plan: Patient reports drinking 4-5 whiskey drinks per day Denies history of alcohol withdrawal symptoms CIWA score implemented during admission, scores ranged from 0-6 Continue thiamine and folic acid Discussed need for alcohol avoidance for 1 week to allow for healing and then alcohol reduction to recommended amount of two 1.5 oz drinks or less per day (5) Acute kidney failure: Code(s): N17.9 - Acute kidney failure, unspecified Status: Acute Assessment and Plan: Resolved with gentle IV fluids. Creatinine 1.1 at time of discharge (6) Hyperkalemia: Code(s): E87.5 - Hyperkalemia Status: Acute Assessment and Plan: Resolved with fluids Potassium 5.1 on presentation, improved to 4.7 at time of discharge 1 rating shows a potassium of 6.1. On stat repeat this declined to 5.2 without intervention. Suspect this was erroneous (7) Barretts esophagus: Code(s): K22.70 - Vieira's esophagus without dysplasia Status: Acute Assessment and Plan: Evident on EGD Esophageal biopsies taken on EGD Follow-up with GI as an outpatient and repeat EGD in 2 months DS: Summary Hospital Course Hospital Course: Date of admission: 11/12/21 Date of discharge: 11/13/21 Julián Sauceda is a 71-year-old male with a history of CAD, hypertension, hyperlipidemia, COVID-19 in November 2020 with long COVID symptoms, and daily alcohol use who presented to the emergency department on 11/12/2021 with complaints of severe epigastric pain and coffee-ground emesis. Troponin negative on presentation and Hgb 11.2. He was admitted to the hospitalist service for further evaluation and management and was seen in consultation by cardiology and gastroenterology. Please see above for further details. EGD revealed reflux esophagiti
--- NOTE | 2021-11-13 14:15 | PM.PNCARD ---
Progress Note: A&P Assessment and Plan (1) Chest pain: Qualifiers: Chest pain type: unspecified Qualified Code(s): R07.9 - Chest pain, unspecified Code(s): R07.9 - Chest pain, unspecified Status: Acute Assessment and Plan: Secondary to GI etiology per EGD report. Discussed with patient's regular Spring Maker Dr. Crum and updated her patient is status recommendations from Gastroenterology to hold aspirin and Plavix for least 1 week. Okay to hold for 1 week then resume clopidogrel 75 mg daily without resuming aspirin at that time. Patient will follow-up with Dr. Crum in her office in 2 weeks or so (he will call for appointment) for further recommendations. PPI. Ok for discharge from CV perspective. (2) CAD (coronary artery disease): Qualifiers: Coronary Disease-Associated Artery/Lesion type: [place] artery [place] vs. transplanted heart: [place] heart Associated angina: without angina Qualified Code(s): I25.10 - Atherosclerotic heart disease of [place] coronary artery without angina pectoris Code(s): I25.10 - Atherosclerotic heart disease of [place] coronary artery without angina pectoris Status: Acute Assessment and Plan: Dual antiplatelet therapy to be continued as appropriate due to overlapping drug-eluting stent February [address] [facility] 3.0 x 38 mm in 2.5 x 24 mm. as above, resume antiplatelets with clopidogrel only in 1 week. Continue statin beta-rafael therapy as tolerated. (3) Coffee ground emesis: Code(s): K92.0 - Hematemesis Status: Acute Assessment and Plan: As above. Concerning for NSAID induced ulcer disease and or esophagitis. Defer to GI and primary service. IV Protonix 40 mg IV q.12 ordered. (4) GERD (gastroesophageal reflux disease): Qualifiers: Esophagitis presence: esophagitis presence not specified Qualified Code(s): K21.9 - Gastro-esophageal reflux disease without esophagitis Code(s): K21.9 - Gastro-esophageal reflux disease without esophagitis Status: Acute Assessment and Plan: As above. (5) Near syncope: Code(s): R55 - Syncope and collapse Status: Acute Assessment and Plan: Likely combination of nausea, vomiting, alcohol but without rehana syncope. Continue telemetry. (6) Acute hyperkalemia: Code(s): E87.5 - Hyperkalemia Status: Acute Assessment and Plan: Resolved. (7) Alcohol use: Code(s): Z72.89 - Other problems related to lifestyle Status: Acute Assessment and Plan: Immediate and absolute cessation from alcohol. (8) Anemia: Code(s): D64.9 - Anemia, unspecified Status: Acute Assessment and Plan: Stable. No evidence for active or ongoing bleeding PPI. (9) Status post coronary artery stent placement: Code(s): Z95.5 - Presence of coronary angioplasty implant and graft Status: Acute Assessment and Plan: February 12, 2021 as above. (10) Chronic fatigue: Code(s): R53.82 - Chronic fatigue, unspecified Status: Acute Assessment and Plan: Patient relates chronic ongoing fatigue, shortness of breath secondary to COVID from January 2021. He sees pulmonology as an outpatient for COVID relating lung injury as described. Subjective Date/time seen: Date of service:11/13/21 14:15 Follow-up for chest pain, history of CAD patient feeling much better today. Notes some mild discomfort status post EGD which revealed duodenitis, possible Vieira's, grade 4 esophagitis. Denies bleeding. Denies shortness of breath. States he feels ready to go home. Review of Systems Review of Systems: All systems reviewed & are unremarkable except as noted in HPI and below Constitutional: Constitutional: Reports as per HPI, Reports no additional constitutional complaints, Reports fatigue and Denies fever(s) Eyes: Eyes: Reports as per HPI and Reports no additional eye complaints ENT: Rep
--- NOTE | 2021-11-13 15:01 | PC.NURSE ---
1445-discharge instructions explained to pt. answered questions.
== END 2021-11-13 15:27 | disposition home or self-care (01) ==
LOC: ANHED 03:48 → ANHIMU 06:34
PROVIDERS: Internal Medicine Gastroenterology; Nurse Practitioner; Physician Assistant; Admitting Provider Internal Medicine; Emergency Provider Emergency Medicine; PCP Internal Medicine; Visit Provider Internal Medicine
PROC: 0DJ08ZZ Inspection of Upper Intestinal Tract, Via Natural or Artificial Opening Endoscopic (ICD-10-PCS; CPT 43235; principal; 2021-11-13 13:15)
DX: K22.10 Ulcer of esophagus without bleeding (principal); R55 Syncope and collapse; K92.0 Hematemesis; K21.00 Gastro-esophageal reflux disease with esophagitis, without bleeding; K44.9 Diaphragmatic hernia without obstruction or gangrene; K29.80 Duodenitis without bleeding; N17.9 Acute kidney failure, unspecified; E87.5 Hyperkalemia; R07.9 Chest pain, unspecified; W18.39XA Other fall on same level, initial encounter; F10.10 Alcohol abuse, uncomplicated; I10 Essential (primary) hypertension; E78.5 Hyperlipidemia, unspecified; I25.10 Atherosclerotic heart disease of native coronary artery without angina pectoris; R53.82 Chronic fatigue, unspecified; K21.9 Gastro-esophageal reflux disease without esophagitis; D64.9 Anemia, unspecified; Z20.822 Contact with and (suspected) exposure to COVID-19; Z72.89 Other problems related to lifestyle; Z95.5 Presence of coronary angioplasty implant and graft; Z86.16 Personal history of COVID-19; Z79.02 Long term (current) use of antithrombotics/antiplatelets
CPT/HCPCS: 43239; 36415; 70450; 71046; 80048; 80053; 83690; 84132; 84484; 85014; 85018; 85025; 85027; 85380; 85610; 85730; 87081; 88305; 93005; 96361; 96374; 96375; 96376; 99285; A9270; C8929; C9113; C9803; G0378; J1940; J2405; J2550; J2704; J7120; Q9957; U0003; U0005

== ENCOUNTER 2022-07-05 00:40 | Day surgery (SDC) | payer MEDICARE, SELFPAY ==
[2022-06-24 12:36] VITALS: BMI 26.4
--- NOTE | 2022-07-05 06:43 | PM.HPGS ---
History of Present Illness History of Present Illness Consent: Risks, benefits, and alternatives have been discussed and questions answered. Patient agrees to proceed with procedure. Chief complaint: Vieira's Esophagus Narrative: Julián Sauceda is a 72 year old male Who 6 months ago had gastrointestinal hemorrhage in found to have severe ulcerative esophagitis biopsies which showed Vieira's mucosa which was indefinite for dysplasia. He had been sent home on pantoprazole 40 mg b.i.d.. He states that when it ran out he stopped taking it. He denies dysphagia. Review of Systems Review of Systems: All systems reviewed & are unremarkable except as noted in HPI and below PMFSH Past Medical History Medical History CAD (coronary artery disease) Chronic fatigue Diverticulitis of colon with perforation GERD (gastroesophageal reflux disease) History of COVID-19 Hyperlipidemia Hypertension Surgical History Surgical History H/O rotator cuff surgery History of appendectomy History of colostomy reversal 2000 Status post coronary artery stent placement Family History Family History Mother Cerebrovascular accident Social History Social History Social History: Mr. Sauceda lives at home. He is independent in his daily activities. He works as an branch associate. His primary care provider is Dr. Whitney. He dizzy needs his partner, Selina as his surrogate decision maker and he would like to be a full code. Smoking status: Current every day smoker Alcohol intake: current Drinks per week: 30 Alcohol use details: 4-5 glasses of whiskey/day Substance use: never Substance use type: does not use Living arrangements: alone Spiritual care concerns: No Meds Home Medications and Allergies Home Medications Medication Instructions Recorded Confirmed Type clopidogrel 75 mg tablet 75 mg PO DAILY 11/12/21 06/24/22 History metoprolol succinate 25 mg 25 mg PO DAILY 11/12/21 06/24/22 History tablet,extended release 24 hr folic acid 1 mg tablet 1 mg PO DAILY #30 tabs 11/13/21 06/24/22 Rx pantoprazole 40 mg tablet,delayed 40 mg PO BID #60 tabs 11/13/21 06/24/22 Rx release thiamine HCl (vitamin B1) 100 mg 100 mg PO QAM #30 tabs 11/13/21 06/24/22 Rx tablet (Vitamin B-1) ferrous sulfate 325 mg (65 mg 325 mg PO DAILY 06/24/22 06/24/22 History iron) tablet multivitamin-ferrous 1 tablet PO DAILY 06/24/22 06/24/22 History fumarate-folic acid 18 mg-400 mcg tablet (Centrum) Allergies Allergy/AdvReac Type Severity Reaction Status Date / Time No Known Allergies Allergy Verified 07/05/22 11:51 Exam Const: General: alert Orientation/consciousness: patient oriented x3 Resp: Auscultation: clear to auscultation bilaterally Cardio: Rhythm: regular rhythm GI: GI Palp: Yes Soft to palpation and No Tenderness to palpation present (GI) Neuro: General: patient oriented x3 Assessment and Plan Assessment and plan (1) Barretts esophagus: Code(s): K22.70 - Vieira's esophagus without dysplasia Status: Acute Assessment and Plan: EGD with possible biopsy or dilatation or cautery.
[2022-07-05 11:54] VITALS: BMI 26.2
[2022-07-05 11:56] VITALS: BP 142/83; PULSE 100; RESP 20; TEMP 36.6; O2SAT 100
[2022-07-05] MEDS: LACTATED RINGERS 1,000 ML 150 ML IV CONT (11:57)
--- NOTE | 2022-07-05 12:33 | WPDANESEPPF ---
Anes - Initial Pre Proc Eval Procedure: Operation Date: 07/05/22 13:00 Proposed Procedures p Esophagogastroduodenoscopy - Marshall Mcgregor MD Date/Time: 07/05/22 12:33 Surgeon: Marshall Mcgregor MD Pre Op Diagnosis: Vieira's Esophagus Patient Data Age: 72 Gender: M Height: 1.83 m Weight: 87.8 kg Last Vital Signs Temp 97.8 F 07/05/22 11:56 Pulse 100 07/05/22 11:56 Resp 20 07/05/22 11:56 BP 142/83 H 07/05/22 11:56 Pulse Ox 100 07/05/22 11:56 O2 Del Method Room Air 07/05/22 11:56 Allergies Allergy/AdvReac Type Severity Reaction Status Date / Time No Known Allergies Allergy Verified 07/05/22 11:51 Home Medications Medication Instructions Recorded Confirmed Type clopidogrel 75 mg tablet 75 mg PO DAILY 11/12/21 06/24/22 History metoprolol succinate 25 mg 25 mg PO DAILY 11/12/21 06/24/22 History tablet,extended release 24 hr folic acid 1 mg tablet 1 mg PO DAILY #30 tabs 11/13/21 06/24/22 Rx pantoprazole 40 mg tablet,delayed 40 mg PO BID #60 tabs 11/13/21 06/24/22 Rx release thiamine HCl (vitamin B1) 100 mg 100 mg PO QAM #30 tabs 11/13/21 06/24/22 Rx tablet (Vitamin B-1) ferrous sulfate 325 mg (65 mg 325 mg PO DAILY 06/24/22 06/24/22 History iron) tablet multivitamin-ferrous 1 tablet PO DAILY 06/24/22 06/24/22 History fumarate-folic acid 18 mg-400 mcg tablet (Centrum) Patient hx anesthesia problems: none Family hx anesthesia problems: none Results Review: All pre-operative results and documents have been reviewed as part of the pre-operative evaluation. [facility] Past Medical History Medical History CAD (coronary artery disease) Chronic fatigue Diverticulitis of colon with perforation GERD (gastroesophageal reflux disease) History of COVID-19 Hyperlipidemia Hypertension Surgical History Surgical History H/O rotator cuff surgery History of appendectomy History of colostomy reversal 2000 Status post coronary artery stent placement Family History Family History Mother Cerebrovascular accident Social History Social History Social History: Mr. Sauceda lives at home. He is independent in his daily activities. He works as an custom seamstress. His primary care provider is Dr. Whitney. He dizzy needs his partner, Selina as his surrogate decision maker and he would like to be a full code. Smoking status: Current every day smoker Alcohol intake: current Drinks per week: 30 Alcohol use details: 4-5 glasses of whiskey/day Substance use: never Substance use type: does not use Living arrangements: alone Spiritual care concerns: No Anes - Eval Final PreProcedure Day of Procedure 07/05/22 12:33 Patient weight: normal Heart: regular rate and rhythm Lungs: clear to auscultation Airway: Mallampati scale class II Neurological: alert and oriented Last oral intake: >/= 8 hours ASA classification: III Emergent: no Anesthetic plan: proceed Anesthesia type and monitoring: general GIVS and standard monitoring Results Review: All pre-operative results and documents have been reviewed as part of the pre-operative evaluation. Informed Consent: The patient's anesthetic plan and its attendant risks and benefits were discussed with the patient/family/POA. Questions were solicited and answers provided to the satisfaction of the patient/family/POA.
[2022-07-05 13:21] VITALS: BP 142/82; PULSE 76; RESP 20; O2SAT 100
[2022-07-05 13:31] VITALS: BP 145/82; PULSE 70; RESP 20; O2SAT 100
[2022-07-05 13:41] VITALS: BP 139/81; PULSE 74; RESP 20; O2SAT 100
== END 2022-07-05 14:00 | disposition home or self-care (01) ==
PROVIDERS: PCP Internal Medicine; Visit Provider Internal Medicine Gastroenterology
PROC: 0DJ08ZZ Inspection of Upper Intestinal Tract, Via Natural or Artificial Opening Endoscopic (ICD-10-PCS; CPT 43235; principal; 2022-07-05 13:00)
DX: Z09 Encounter for follow-up examination after completed treatment for conditions other than malignant neoplasm (principal); K22.70 Barrett's esophagus without dysplasia; K44.9 Diaphragmatic hernia without obstruction or gangrene; K25.9 Gastric ulcer, unspecified as acute or chronic, without hemorrhage or perforation; K29.80 Duodenitis without bleeding; Z79.02 Long term (current) use of antithrombotics/antiplatelets; I25.10 Atherosclerotic heart disease of native coronary artery without angina pectoris; I10 Essential (primary) hypertension; E78.5 Hyperlipidemia, unspecified; Z95.5 Presence of coronary angioplasty implant and graft
CPT/HCPCS: 43239; 87081; 88305; J2704; J7120